=== PATIENT | male | born 1980 | race African-American/Black ===

== ENCOUNTER 2017-10-01 15:10 | Emergency (ER) | payer SELFPAY ==
[2017-10-01] MEDS ORDERED: Lidocaine 1% 2 ML ONE (17:18)
[2017-10-01] MEDS ORDERED: cefTRIAXone 250 MG Vial ONE (17:18)
--- NOTE | 2017-10-02 10:16 | EDM.PDOC ---
ED HPI GENERAL MEDICAL PROBLEM - General Chief Complaint: Genitourinary Problem Stated Complaint: PAINFUL URINATION Time Seen by Provider: 10/01/17 16:45 Source of Information: Reports: Patient History Limitations: Reports: No Limitations - History of Present Illness INITIAL COMMENTS - FREE TEXT/NARRATIVE: 37-year-old male presents to the ED with acute onset of dysuria urgency and frequency. Patient states symptoms started 2 days ago. Is also noticed some discharge per ureteral me meatus the last 2 days. No blood noted in urine. Patient has had unprotected intercourse with a female partner days prior. They also had oral intercourse. Symptoms started after this. He's never had a sexual transmitted disease before. Patient denies any systemic signs of illness such as fever chills nausea or vomiting. Chelation is not painful. Onset: Gradual Onset Date: 09/29/17 Duration: Hour(s): Location: Reports: Other Quality: Reports: Burning Severity: Moderate Improves with: Reports: None Worsens with: Reports: None Context: Reports: Other (Sudden onset 2 days ago.). 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 Social & Family History - Living Situation & Occupation Living situation: Reports: Single Occupation: Employed ED ROS GENERAL - Review of Systems Review Of Systems: See Below Constitutional: Reports: No Symptoms HEENT: Reports: No Symptoms Respiratory: Reports: No Symptoms Cardiovascular: Reports: No Symptoms Endocrine: Reports: No Symptoms GI/Abdominal: Reports: No Symptoms : Reports: No Symptoms Musculoskeletal: Reports: No Symptoms Skin: Reports: No Symptoms Neurological: Reports: No Symptoms Psychiatric: Reports: No Symptoms Hematologic/Lymphatic: Reports: No Symptoms Immunologic: Reports: No Symptoms ED EXAM, RENAL/ - Physical Exam Exam: See Below Exam Limited By: No Limitations General Appearance: Alert, WD/WN (Mildly anxious.), Anxious GI/Abdominal: Normal Bowel Sounds, Soft, Non-Tender, No Organomegaly, No Distention, No Abnormal Bruit, No Mass, Pelvis Stable, Other (Male) Exam: No Hernia (No inguinal adenopathy.), Normal Inspection, Urethral Discharge. No: Inguinal Lymphadenopathy, Penile Lesions, Scrotal Swelling, Scrotum Tenderness (L), Scrotum Tenderness (R), Suprapubic Fullness, Testicular Mass, Testicular Tenderness (L), Testicular Tenderness (R) Back Exam: Normal Inspection, Full Range of Motion. No: CVA Tenderness (L), CVA Tenderness (R) Extremities: Normal Inspection, Normal Range of Motion, Non-Tender Neurological: Alert, Oriented, CN II-XII Intact, Normal Cognition Psychiatric: Normal Affect, Normal Mood Skin Exam: Warm, Dry, Intact, Normal Color Course - Radiology Interpretation Free Text/Narrative:: 37-year-old male presents the ED with acute onset of dysuria urgency and frequency with some penile discharge the last 2 days. He had sexual relationship with a female 2 days prior to onset of symptoms. Is no history of sexually transmitted disease. Examination reveals some erythema of the urethral meatus with some purulent discharge. Plan urinalysis and check for gonorrhea and chlamydia. - Re-Assessments/Exams Free Text/Narrative Re-Assessment/Exam: 10/01/17 18:18: Urinalysis shows trace of pus cells and 5-10 WBCs per high- power field but no blood. Gonorrhea and Chlamydia testing were reported as negative. Patient will therefore be treated with doxycycline 100 mg twice daily for 12 days and given a shot of Rocephin 250 mg IM to cover for potential gonorrhea. Patient advised strongly to finish all of his medications. To wear protection if he has intercourse in the next 12 days. Follow-up is not indicated as long as his symptoms resolve within the next 48 hours. Departure - Departure Time of Disposition: 18:30 Disposition: Home, Self-Care 01 Condition: Fair Clinical Impression: Urethritis, nonspecific - Discharge Information Referrals: PCP,None [Primary Care Provider] - Forms: ED Department Discharge Additional Instructions: Evaluation the emergency room today in regards to development of dysuria which means painful urination associated with some discharge per penile urethra over the last 48 hours. Labs revealed that the testing for gonorrhea and chlamydia were negative. Analysis is trace positive for infective process. Therefore you were diagnosed with a nonspecific urethritis. Treatment has doxycycline 100 mg twice daily for the next 12 days. Also initial injection of Rocephin 250 mg was given intramuscularly to cover for gonorrhea. Follow-up if not markedly improved in 48 hours time.
[2017-10-02 11:54] LABS: C. TRACHOMATIS BY PCR NOT DETECTED; N. GONORRHOEAE BY PCR NOT DETECTED
== END 2017-10-01 17:30 | disposition home or self-care (01) ==
LOC: JD.ED 15:10
DX: N34.2 Other urethritis (principal)
CPT/HCPCS: 81001; 87491; 87591; 96372; 99283; J0696